=== PATIENT | male | born 1995 | race Caucasian/White ===

== ENCOUNTER 2022-08-15 12:54 | Emergency (ER) | payer OTHER, SELFPAY ==
--- NOTE | 2022-08-15 | XR_ITS ---
Patient: ELIANA CLIFTON Facility:?[facility] RIS Patient ID:?[id number] Site Patient ID:?[id number]. Site :?08/26/1977 Study:?XRay-Extremity Right WRIST-08/15/2022 2:48:00 PM Ordering Physician:LANDEN Final Report: Indication: Right wrist pain. Technique: Right wrist 3 views. Comparison: None. Findings: Bones: Alignment is normal. No fractures or bone lesions. Joint spaces: Joint spaces are well maintained. No degenerative changes. Soft tissues: Unremarkable. Impression: No findings to explain pain. Dictated by Andrew Sneed MD @ 08/15/2022 3:10:26 PM Signed by:?Andrew Sneed MD @08/15/2022 3:10:26 PM (Electronic Signature)
[2022-08-15 13:22] VITALS: BP 112/69; PULSE 80; RESP 16; TEMP 36.7; O2SAT 97; BMI 22.2
--- NOTE | 2022-08-15 15:25 | ED.NURSE ---
Patient brought from [facility] to ED triage room for exam by Dr. De La Paz. CRTIS result of xray provided to Dr. De La Paz. Patient is ambulatory, status unchanged since arrival.
--- NOTE | 2022-08-15 15:32 | ED.NURSE ---
Discharge teaching complete, all questions answered. Patient fitted with cock up wrist splint without difficulty.
--- NOTE | 2022-08-15 15:38 | ED_ITS ---
CHIEF COMPLAINT This patient is a?[id number] male coming in with right wrist pain. ? HISTORY OF PRESENT ILLNESS Around 11:30 or so, he was using a drill, and it caught and twisted his wrist. ?He states he is having pain from his wrist to his fingertips. ?He states it hurts to straighten his hand. ?Denies any numbness or tingling. ?He has been icing. ? CURRENT MEDICATIONS No medications. ? ALLERGIES No allergies. PHYSICAL EXAMINATION The patient is alert, interactive, ambulatory in the ER. ?He is afebrile at 98.1 degrees Fahrenheit, pulse 80, respiratory rate 16, 97% on room air. ?On inspection of his wrist, he is holding his fingers flexed. ?There is no visible swelling or skin changes about the right wrist. ?He is tender over the distal right wrist into the carpal bones. ?Metacarpals are nontender. ?He states he cannot straighten his fingers, but I can fully straighten them and then he is able to leave them straight. ?He can close his fingers after that. ?Normal distal sensation in all the fingers. ?Any range of motion about the wrist or palpation about the wrist is painful. ?No snuffbox tenderness. TEST RESULTS Right wrist x-ray was obtained, over-read by Radiology, and negative for fracture. ? IMPRESSION Right wrist injury without fracture. PLAN We will give him a cock-up wrist splint to be used for comfort. ?I have discussed ongoing icing, relative rest, if not improving over the next 1-2 weeks should seek re-evaluation. ?Tylenol and ibuprofen per bottle directions as needed. ?Discharged from here in stable condition. Dictated Date: 08/15/2022 15:38:24 CDT Internal Job ID: [id number]
== END 2022-08-15 15:39 | disposition home or self-care (01) ==
PROVIDERS: Emergency Provider Family Medicine
DX: M25.531 Pain in right wrist (principal); X50.1XXA Overexertion from prolonged static or awkward postures, initial encounter
CPT/HCPCS: 29125; 73110; 99283